=== PATIENT | male | born 1990 | race Caucasian/White ===

== ENCOUNTER 2017-03-31 13:04 | Emergency (ER) | payer BC ==
--- NOTE | 2017-03-31 14:09 | EDM.PDOC ---
ED HPI GENERAL MEDICAL PROBLEM - General Chief Complaint: ENT Problem Stated Complaint: RIGHT EAR PAIN Time Seen by Provider: 03/31/17 14:08 Source of Information: Reports: Patient History Limitations: Reports: No Limitations - History of Present Illness INITIAL COMMENTS - FREE TEXT/NARRATIVE: 26-year-old male presents for evaluation treatment of a sore to the right ear. He states that he first noticed the sore yesterday. He states that it feels slightly painful and rates it as a 1 out of 10. He has noticed some serous drainage and crusting from the area. He is concerning a been bit by a bug. He has not been able to see or evaluate the area. He reports pain, minor swelling, drainage and crusting to the right ear. No associated fevers, chills, nausea, vomiting or headaches. Right Ear Pain Score (Numeric/FACES): 1 - Related Data Allergies Allergy/AdvReac Type Severity Reaction Status Date / Time Sulfa (Sulfonamide Allergy Cannot Verified 03/31/17 13:15 Antibiotics) Remember Home Meds: Home Meds . [No Known Home Meds] 03/31/17 [History] Past Medical History - Past Surgical History HEENT Surgical History: Reports: Adenoidectomy, Myringotomy w Tube(s) Social & Family History - Tobacco Use Smoking Status *Q: Current Every Day Smoker Years of Tobacco use: 8 Packs/Tins Daily: 0.5 - Recreational Drug Use Recreational Drug Use: No ED ROS ENT - Review of Systems Review Of Systems: See Below Constitutional: Denies: Fever, Chills HEENT: Reports: Ear Pain (right) GI/Abdominal: Denies: Nausea, Vomiting Skin: Reports: Wound (right ear) Neurological: Denies: Headache ED EXAM, ENT - Physical Exam Exam: See Below Exam Limited By: No Limitations General Appearance: Alert, WD/WN, No Apparent Distress Eye Exam: Bilateral Eye: Normal Inspection Ears: Normal Canal, Hearing Grossly Normal, Normal TMs, Other (aproximately 1 cm in diameter erythematous, slightly swollen lump to the right inferior ear canal just with serous crusting present) Nose: Normal Inspection Mouth/Throat: Normal Inspection, Normal Lips, Normal Oropharynx, Normal Teeth Head: Atraumatic, Normocephalic, Other (no mastoid tenderness) Respiratory/Chest: No Respiratory Distress, Lungs Clear Cardiovascular: Normal Peripheral Pulses, Regular Rate, Rhythm, No Murmur Neurological: Alert, Oriented, Normal Cognition Psychiatric: Normal Affect, Normal Mood Skin: Warm, Dry, Normal Color Course - Vital Signs Last Recorded V/S: Last Vital Signs Temp 36.7 C 03/31/17 13:13 Pulse 78 03/31/17 13:13 Resp 16 03/31/17 13:13 BP 122/77 03/31/17 13:13 Pulse Ox 95 03/31/17 13:13 Departure - Departure Time of Disposition: 14:24 Disposition: Home, Self-Care 01 Condition: Good Clinical Impression: Abrasion - Discharge Information Instructions: Abrasion Referrals: PCP,None [Primary Care Provider] - Forms: ED Department Discharge Additional Instructions: wash the area with gentle soap and water twice a day. antibacterial ointment such as neosporin or bacitracin to the area twice a day x 5 days. monitor for worsening swelling, redness or pus. Present to the clinic or the ER should these develop. Please return to the ER should your symptoms change or worsen.
== END 2017-03-31 14:30 | disposition home or self-care (01) ==
LOC: JD.ED 13:04
CPT/HCPCS: 99282; 99283

== ENCOUNTER 2017-09-26 14:55 | Emergency (ER) | payer SELFPAY ==
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
[2017-09-26] MEDS ORDERED: Nicotine 21 MG/24 Hr Patch TRDERM ONE (17:10)
[2017-09-26 17:31] VITALS: BP 145/97
[2017-09-26] MEDS ORDERED: Haloperidol Lactate 5 MG/ML SDV IM ONE (18:16)
[2017-09-26] MEDS ORDERED: LORazepam 2 MG/ML SDV IM ONE (18:16)
== END 2017-09-26 19:22 ==
LOC: JD.ED 14:55
DX: F07.0 Personality change due to known physiological condition (principal); R44.3 Hallucinations, unspecified; F17.210 Nicotine dependence, cigarettes, uncomplicated; Z88.2 Allergy status to sulfonamides
CPT/HCPCS: 36415; 80053; 80306; 82977; 84443; 85025; 99285; G0480

== ENCOUNTER 2017-09-26 23:10 | Emergency (ER) | payer SELFPAY ==
[2017-09-26 23:20] VITALS: BP 156/104
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
== END 2017-09-27 09:45 ==
LOC: JD.ED 23:10
DX: T14.91XA Suicide attempt, initial encounter (principal); F60.9 Personality disorder, unspecified; R44.3 Hallucinations, unspecified; Z88.2 Allergy status to sulfonamides; F17.210 Nicotine dependence, cigarettes, uncomplicated; Y92.039 Unspecified place in apartment as the place of occurrence of the external cause
CPT/HCPCS: 36415; 80306; 99285; G0480